=== PATIENT | female | born 1945 | race African-American/Black ===

== ENCOUNTER 2020-05-29 07:36 | Outpatient (CLI) | payer MEDICARE, OTHER ==
[2020-05-30 15:22] LABS: SARS-CoV-2 MS2 Positive; SARS-CoV-2 N Gene Negative; SARS-CoV-2 S Gene Negative; SARS-CoV-2 by NAA Not Detected (NotDetected); SARS-CoV-2 orf1ab Negative
--- NOTE | 2020-06-01 17:27 | EKG ---
Test Reason : Blood Pressure : / mmHG Vent. Rate : 064 BPM Atrial Rate : 064 BPM P-R Int : 172 ms QRS Dur : 078 ms QT Int : 442 ms P-R-T Axes : 035 026 083 degrees QTc Int : 455 ms Normal sinus rhythm Nonspecific ST-T changes No previous ECGs available Confirmed by DR. Christian YO ([id number]) on 06/01/2020 5:27:25 PM Referred By: SAIRA Confirmed By:DR. Christian YO
== END 2020-05-29 07:37 | disposition home or self-care (01) ==
LOC: LABBT 07:36
PROVIDERS: ATTEND Orthopaedic Surgery Hand Surgery
DX: Z01.818 Encounter for other preprocedural examination (principal); G56.01 Carpal tunnel syndrome, right upper limb; Z20.828 Contact with and (suspected) exposure to other viral communicable diseases
CPT/HCPCS: 93005; U0003; 87635; 93010

== ENCOUNTER 2020-06-01 13:27 | Day surgery (SDC) | payer MEDICARE, OTHER ==
[2020-05-29 15:01] VITALS: BMI 23.0
[~2020-06-01 13:27] MED LIST: PHENYLEPHRINE-NS 100 MCG/ML 10 ML SYRINGE ONE
[2020-06-01 15:14] LABS: Anion Gap 19 mmol/L (10-20); BUN (Urea Nitrogen) 27 mg/dL (9.8-20.1); Calc. Creatinine Clearance 7 mL/min (70-130); Calcium 10.1 mg/dL (7.8-10.44); Carbon Dioxide 28 mmol/L (23-31); Chloride 95 mmol/L (98-107); Glucose 61 mg/dL (83-110); Potassium 4.4 mmol/L (3.5-5.1); Sodium 138 mmol/L (136-145)
[2020-06-01 15:21] LABS: #Basophils 0.1 thou/uL (0.0-0.2); #Eosinphils 0.3 thou/uL (0.0-0.7); #Lymphocytes 2.1 thou/uL (1.20-3.40); #Monocytes 0.6 thou/uL (0.11-0.59); #Neutrophils 3.7 thou/uL (1.40-6.50); %Basophils 1.1 % (0.0-1.0); %Eosinophils 4.6 % (0.0-10.0); %Lymphocytes 31.3 % (21.0-51.0); %Monocytes 9.2 % (0.0-10.0); %Neutrophils 53.9 % (42.0-75.0); Hypochromia SLIGHT = 6-15 cells (100X) (0-5/hpf); MDiff Complete? YES; Mean Corpuscular HGB CONC 30.9 g/dL (32.0-36.0); Mean Corpuscular Hemoglobin 24.3 pg (27.0-31.0); Mean Corpuscular Volume 78.7 fL (78.0-98.0); Mean Platelet Volume 9.3 fL (7.4-10.4); Ovalocytes SLIGHT = 2-5 cells (100X) (0-1/hpf); Platelet Count 126 thou/uL (130-400); Platelet Morphology Comment Appears Decreased; RBC Distribution Width 14.2 % (11.5-14.5); Red Blood Cell (RBC) Count 4.54 mill/uL (4.20-5.40); Schistocytes SLIGHT = 2-5 cells (100X) (0-1/hpf); Target Cells SLIGHT = 2-5 cells (100X) (0-1/hpf); Tear Drops SLIGHT = 2-5 cells (100X) (0-1/hpf); White Blood Cell (WBC) Count 6.8 thou/uL (4.8-10.8)
[2020-06-01] MEDS ORDERED: Bacitracin Zinc Ointment 30 gm TUBE ONE (16:02)
[2020-06-01] MEDS ORDERED: Bupivacaine PF 0.5% 30 ML VIAL ONE (16:02)
[2020-06-01] MEDS ORDERED: Sodium Chloride 0.9% 10 ML ONE (16:02)
[2020-06-01] MEDS ORDERED: Fentanyl 100 MCG/2 ML VIAL ONE (16:07)
[2020-06-01] MEDS ORDERED: Midazolam HCl 2 mg/2 ml Vial ONE (16:07)
[2020-06-01] MEDS ORDERED: Propofol 500 MG/50 ML VIAL ONE (16:08)
[2020-06-01] MEDS ORDERED: Ketamine 50 MG/ML (10ML VIAL) ONE (16:08)
[2020-06-01] MEDS ORDERED: Betamet Acet/Betamet Na Ph 30 MG/5 ML VIAL ONE ×2 (17:06)
[2020-06-01] MEDS ORDERED: PHENYLEPHRINE-NS 100 MCG/ML 10 ML SYRINGE ONE (17:18)
--- NOTE | 2020-06-02 11:34 | OP ---
DATE OF PROCEDURE: 06/01/2020 PREOPERATIVE DIAGNOSIS: Right carpal tunnel syndrome. POSTOPERATIVE DIAGNOSES: Right carpal tunnel syndrome. PROCEDURE PERFORMED: Right carpal tunnel release, open mini technique. TOURNIQUET TIME: 12 minutes. ESTIMATED BLOOD LOSS: Less than 10 mL. FINDINGS: Very tight transverse carpal ligament with constricted and flattened median nerve with stippling underneath the thinned transverse carpal ligament. INJECTABLE: 20 mL of 0.5% Marcaine, 10 given before the procedure and 10 given after the incision was closed. DESCRIPTION OF PROCEDURE: After successful general endotracheal anesthesia, the limb was prepped and draped. The patient had the time-out done appropriately. We then outlined incision 5 mm distal to the volar wrist flexion crease. It was in line with the ring finger. We exsanguinated the limb, inflated tourniquet to 250 mmHg pressure and then carried incision through skin and subcutaneous tissue. We identified the transverse carpal ligament and had a point just immediately ulnar to the terminal portion of the palmaris longus. We made incision in the center portion of the transverse carpal ligament. We identified underlying tendinous structures and then from there, released it distally direct visualization with [place] blade in combination of tenotomy scissors and did the same for the midportion proximally using a [place] blade, tenotomy scissors. We saw the flattening with constriction and stippling as described in "post findings" above. We placed 3 mL Celestone here, deflated tourniquet, closed the wound after obtaining hemostasis with interrupted 4-0 nylon mattress pattern, and the patient left the operating room without evidence of anesthetic or operative complication. Job ID: [id number]
== END 2020-06-01 18:33 | disposition home or self-care (01) ==
LOC: SDC 13:27
PROVIDERS: ATTEND Orthopaedic Surgery Hand Surgery
PROC: 01N50ZZ Release Median Nerve, Open Approach (ICD-10-PCS; principal; 2020-06-01)
DX: G56.01 Carpal tunnel syndrome, right upper limb (principal); I12.0 Hypertensive chronic kidney disease with stage 5 chronic kidney disease or end stage renal disease; N18.6 End stage renal disease; I25.10 Atherosclerotic heart disease of native coronary artery without angina pectoris; I25.2 Old myocardial infarction; I73.9 Peripheral vascular disease, unspecified; Z87.891 Personal history of nicotine dependence; Z79.82 Long term (current) use of aspirin; Z79.899 Other long term (current) drug therapy; Z88.6 Allergy status to analgesic agent; Z99.2 Dependence on renal dialysis
CPT/HCPCS: 36415; 80048; 85025; J0690; J0702; J2250; J2704; J3010; J3490; S0020